=== PATIENT | male | born 2000 | race Hispanic/Latino ===

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

== ENCOUNTER 2022-05-18 13:57 | Emergency (ER) | payer BC ==
[~2022-05-18] VITALS: Ht 170.2 cm; Wt 124.7 kg
[~2022-05-18 13:57] MED LIST: ACET-2079 PO; ONDA4TAB10 PO
[2022-05-18] MEDS ORDERED: CYCL10TA16 PO (15:44)
[2022-05-18] MEDS ORDERED: IBUP-2070 PO (15:44)
[2022-05-18 15:53] VITALS: BP 145/96
[2022-05-18] MEDS ORDERED: CYCLOBENZAPRINE HCL 10 MG TABLET PO ONE (16:00)
[2022-05-18] MEDS ORDERED: KETOROLAC 30MG VIAL (30MG/ML) IM ONE (16:00)
== END 2022-05-18 16:31 | disposition home or self-care (01) ==
LOC: EDH 13:57
DX: S83.92XA Sprain of unspecified site of left knee, initial encounter (principal); X50.1XXA Overexertion from prolonged static or awkward postures, initial encounter; Y93.89 Activity, other specified; Y92.89 Other specified places as the place of occurrence of the external cause; Y99.8 Other external cause status
CPT/HCPCS: 99284; 73562; 96372; J1885